=== PATIENT | male | born 1950 | race Caucasian/White ===

== ENCOUNTER → 2017-04-01 | Outpatient (CLI) | payer OTHER, BC ==
[~2017-04-01] VITALS: Ht 152.4 cm; Wt 78.9 kg
[~2017-04-01] MED LIST: ADULT LOW DOSE81 M1 PO; ANORO ELLIPTA1 EACH IH; ASPIR-LOW81 MG PO; ASPIRIN325 MG PO; FAMOTIDINE20 MG PO; LEVOTHYROXINE25 MCG PO; LEVOTHYROXINE50 MCG PO; LIPITOR20 MG PO; LOPRESSOR50 MG PO; NITROSTAT0.4 MG SL; PREDNISONE20 MG PO; TYLENOL REGULA325 MG PO
[2017-04-01 14:38] LABS: INTER. NORMALIZED RATIO 1.1
[2017-04-01 14:41] LABS: PTT 41.9 SEC (25-37)
[2017-04-01 17:42] LABS: HEMATOCRIT 35.1 % (38.0-50.0); HEMOGLOBIN 12.3 G/DL (12.5-16.6); MCH 31.1 PG (29.0-34.0); MCV 88.6 FL (86-99); PLATELET COUNT 80 K/uL (156-360); RBC DIS.WIDTH-CV 13.1 % (11.8-14.6); RBC DIS.WIDTH-SD 42.9 % (39-53); RED BLOOD COUNT 3.96 M/uL (4.00-5.50)
== END | disposition home or self-care (01) ==
LOC: AMB 13:46
PROVIDERS: Internal Medicine Pulmonary Disease
PROC: 07D78ZX Extraction of Thorax Lymphatic, Via Natural or Artificial Opening Endoscopic, Diagnostic (ICD-10-PCS; principal; 2017-04-01)
PROC: 0BB28ZX Excision of Carina, Via Natural or Artificial Opening Endoscopic, Diagnostic (ICD-10-PCS; principal; 2017-04-01)
DX: R59.0 Localized enlarged lymph nodes (principal); Z87.891 Personal history of nicotine dependence; E03.9 Hypothyroidism, unspecified; K74.60 Unspecified cirrhosis of liver; I10 Essential (primary) hypertension; E66.9 Obesity, unspecified; J44.9 Chronic obstructive pulmonary disease, unspecified; D86.9 Sarcoidosis, unspecified; G47.30 Sleep apnea, unspecified
CPT/HCPCS: 83880; 85027; 85610; 85730; 88173; 88305; J0461; J2175; J2250; J2550; J3010